=== PATIENT | male | born 1930 | race Caucasian/White ===

== ENCOUNTER 2017-01-01 18:52 | Emergency (ER) | payer MEDICARE, OTHER ==
--- NOTE | 2017-01-01 20:59 | EDM.PDOC ---
ED HPI GENERAL MEDICAL PROBLEM - General Chief Complaint: Lower Extremity Injury/Pain Stated Complaint: KNOT IN R HIP Time Seen by Provider: 01/01/17 20:11 Source of Information: Reports: Patient History Limitations: Reports: No Limitations - History of Present Illness INITIAL COMMENTS - FREE TEXT/NARRATIVE: 86 years old male patient presented with chief complaint of pain in his right buttock area. Started today. He stated that it was sore 3 weeks ago and resolved with Biofreeze and Tylenol. Today it's worse again. He has been moving furniture and other object today . Denies any redness or swelling or discharge. No fever. Denies any chest pain or shortness breath. No other complaints. Pain is worse when he walked. Or with palpation Right leg Pain Score (Numeric/FACES): 9 - Related Data Allergies Allergy/AdvReac Type Severity Reaction Status Date / Time No Known Allergies Allergy Verified 01/01/17 19:42 Home Meds: Home Meds Aspirin [Halfprin] 81 mg PO DAILY 01/01/17 [History] Dutasteride [Avodart] 0.5 mg PO DAILY 01/01/17 [History] Fexofenadine/Pseudoephedrine [Anais-D 24 Hour Tablet] 1 tab PO DAILY 01/01/17 [History] Omeprazole 20 mg PO BID 01/01/17 [History] Sertraline [Zoloft] 100 mg PO DAILY 01/01/17 [History] Tamsulosin [Flomax] 0.8 mg PO BEDTIME 01/01/17 [History] Tolterodine Tartrate [Tolterodine Tartrate ER] 4 mg PO DAILY 01/01/17 [History] Past Medical History Cardiovascular History: Reports: High Cholesterol, SOB on Exertion Gastrointestinal History: Reports: Colon Polyp, Diverticulosis, GERD Genitourinary History: Reports: Prostate Disorder, Renal Disease Musculoskeletal History: Reports: Osteoarthritis Oncologic (Cancer) History: Reports: Basal Cell Carcinoma, Other (See Below) Other Oncologic History: pt has hx of some cancer but doesn't remember name of it Dermatologic History: Reports: Melanoma - Past Surgical History HEENT Surgical History: Reports: Tonsillectomy GI Surgical History: Reports: Colonoscopy, EGD Male Surgical History: Reports: Other (See Below) Other Male Surgeries/Procedures: kidney biopsy Social & Family History - Tobacco Use Smoking Status *Q: Never Smoker - Caffeine Use Caffeine Use: Reports: None - Alcohol Use Days Per Week of Alcohol Use: 5 Number of Drinks Per Day: 2 Total Drinks Per Week: 10 - Recreational Drug Use Recreational Drug Use: No Review of Systems - Review of Systems Review Of Systems: ROS reveals no pertinent complaints other than HPI. ED EXAM, GENERAL - Physical Exam Exam: See Below Exam Limited By: No Limitations General Appearance: Alert, WD/WN, No Apparent Distress Ears: Normal External Exam, Normal Canal, Hearing Grossly Normal, Normal TMs Ear Exam: Bilateral Ear: Auricle Normal, Canal Normal, TM normal Throat/Mouth: Normal Inspection, Normal Lips, Normal Teeth, Normal Gums, Normal Oropharynx, Normal Voice, No Airway Compromise Head: Atraumatic, Normocephalic Neck: Normal Inspection, Supple, Non-Tender, Full Range of Motion Respiratory/Chest: No Respiratory Distress, Lungs Clear, Normal Breath Sounds, No Accessory Muscle Use, Chest Non-Tender Cardiovascular: Normal Peripheral Pulses, Regular Rate, Rhythm, No Edema, No Gallop, No JVD, No Murmur, No Rub Back Exam: Normal Inspection, Full Range of Motion, NT Extremities: Normal Inspection, Normal Range of Motion, Non-Tender, No Pedal Edema, Normal Capillary Refill Neurological: Alert, Oriented, CN II-XII Intact, Normal Cognition, Normal Gait, Normal Reflexes, No Motor/Sensory Deficits Skin Exam: Warm, Dry, Intact, Normal Color, No Rash Course - Vital Signs Last Recorded V/S: Last Vital Signs Temp 36.3 C 01/01/17 19:41 Pulse 87 01/01/17 19:41 Resp 19 01/01/17 19:41 BP 135/88 01/01/17 19:41 Pulse Ox 96 01/01/17 19:41 - Re-Assessments/Exams Free Text/Narrative Re-Assessment/Exam: 01/01/17 20:56 Patient was seen and examined shortly after arrival. Most likely muscle strain or sprain. Exams completely unremarkable. Advised to use some ice, Tylenol or ibuprofen for discomfort. And dressed. Patient agrees with the plan. Come back symptom worsen. Stable for discharge Departure - Departure Time of Disposition: 20:57 Disposition: Home, Self-Care 01 Condition: Good Clinical Impression: Musculoskeletal thigh pain - Discharge Information Instructions: Hip Pain Referrals: PCP,None [Primary Care Provider] - Additional Instructions: Advised to use some ice, Tylenol or ibuprofen for discomfort. And rest. Come back symptom worsen. - Assessment/Plan Plan: Advised to use some ice, Tylenol or ibuprofen for discomfort. And rest. Come back symptom worsen.
== END 2017-01-01 21:05 | disposition home or self-care (01) ==
LOC: JP.ED 18:52
DX: M79.651 Pain in right thigh (principal); E78.00 Pure hypercholesterolemia, unspecified; M19.90 Unspecified osteoarthritis, unspecified site; Z79.82 Long term (current) use of aspirin; Z79.899 Other long term (current) drug therapy
CPT/HCPCS: 99283